=== PATIENT | female | born 1965 | race African-American/Black ===

== ENCOUNTER 2025-01-23 15:26 | Emergency (ER) | payer SELFPAY ==
[~2025-01-23] VITALS: Ht 167.6 cm; Wt 90.0 kg
[2025-01-23 16:02] VITALS: TEMP 97.7
--- NOTE | 2025-01-23 16:08 | ED.PDOC ---
CPR-HPI HPI Comments 59 year old female NILAM presents to the ED with cardiac arrest/CPR. EMS reports patient was having lunch with family at [facility] when all of a sudden patient became unresponsive and started gargling before CPR was provided by bystander. EMS relays that the patient was in asystole initially but after 3 rounds of epinephrine and 7 shocks with defibrillator, patient remained in V- Tach. EMS notes down time prior to hospital was 27 minutes. Patient noted to be a heavy smoker, no other history provided. No further history obtained at this time. 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 Family History Family History: Unknown Social History Smoker: Unknown Alcohol: Unknown Drugs: Unknown Lives In: Home Unable to Obtain due to: Medical Urgency Physical Exam General Appearance: Other (unresponsive) HEENT: Other (pupils fixed and dilated) Neck: None Respiratory: Other (good bilateral breath sounds with bagging) Cardiovascular: Other (good carotid pulses with cpr) Breast Exam: None Gastrointestinal: Other (distended) Genitalia: Deferred Pelvic: Deferred Rectal: Deferred Extremities: Other (cool, pale) Neurologic: No Motor Deficits, None Cerebellar Function: Unable to Test Reflexes: None Skin: Other (pale and cool to touch) Lymphatic: None Was a procedure done? Was a procedure done?: Yes Sedation Sedation?: No Other Procedure Procedure bedside cardiac US, minimal heart valve flickering, then CPR resumed. no cardiac tamponade, no free wall or interventricular wall rupture Differential Dx CPR Differential Diagnosis: Cardiopulmonary arrest, Cardiac Tamponade, Dysrhythmia, Electrolyte disorder, Heart Block, Myocardial Infarction, Pulmonary Embolus, Respiratory Failure, Ruptured Aortic Aneurysm, Other (aspiration) X-Ray, Labs, Meds, VS Vital Signs Date Time Temp Pulse Resp B/P (MAP) Pulse Ox O2 Delivery O2 Flow Rate FiO2 01/23/25 16:02 97.7 97.7 Time of 1ST Reevaluation: 15:59 Reevaluation 1ST: N/A (Patient .) Patient Education/Counseling: Pt Unresponsive Family Education/Counseling: Diagnosis, No Family Present Comments per pt's son, pt had finished eating, when she suddenly and quietly slumped over and became unresponsive. bystanders performed CPR after awhile and EMT reports pt without response after 3 rounds of epi for pulseless VT. once pt arrived, she continued to alternate between PEA, VF, torsades, with a couple of shoret intervals of ROSC that lasted less than 10 secs each. bagging was without difficulties. pt did not respond to many doses of epi, bicarb, mag, lidocaine, amiodarone, mostly due to the couple of transient ROSC. however, pt went into PEA again and did not respond further. resuscitation effort was terminated( see code document). before termination i attempted to intubate pt, but she had copious gi content emesis. this was suctioned and cleared and continue bagging was without difficulties just before ending the resuscitation. family came to bedside, with and son, they were updated given the history of heavy smoking, no regular medical care, morbid obesity, and the recent ingestion of a "heavy meal," an acute OR is most likely the cause of the cardiac arrest Departure 1 Departure Time of Disposition: 16:20 Impression: Primary Impression: Cardiac arrest Disposition: 20 Condition: Other () Discharged With: Relative, Spouse Critical Care Note Critical Care Time?: No Heart Score Heart Score: Heart Score Response (Comments) Value History N/A 0 EKG N/A 0 Age N/A 0 Risk Factors N/A 0 Troponin N/A 0 Total 0 Stability Stability form required: No I personally scribed for JENNIFER BENTON MD ([email or web address]) on 01/23/25 at 16:08. Electronically submitted by Mark Gardiner ([email or web address]). JENNIFER BENTON MD January 23, 2025 16:08
--- NOTE | 2025-01-23 19:05 | RESUS ---
CODE BLUE ASSESSSMENT History of Events History of Events: NILAM CPR IN PROGRESS. PT WAS AT [facility] HAVING LUNCH WITH FAMILY WHEN SHE BEGAN TO GAG AND WENT UNRESPONSIVE. EMS GAVE LIDOCAINE X 1, EPI X 1 AND SHOCLED X6. IO RIGHT TIBIA. PT IS BEING BAGGED WITH ONLY OPA IN PLACE Initial Information Date: January 23, 2025 Time: 15:25 Location of Arrest: In Field Arrest Witnessed: Yes CPR started by whom: Bystander Pre-Hospital Care: ACLS Type of arrest: Cardiac, Respiratory, Adult, Witnessed Spontaneous Respirations: No Pulse Present: No Monitoring: ECG, Capnography Crash Cart Opened and Supplies: Yes Airway Ventilation Breathing at Onset: Assisted Oxygen Delivery Method: Ambu-Bag Artificial Ventilation: Bag/Mask Circulation Circulation #1: Time: 15:26 Pulse Rate (adult): 120 Circulation Comment: PEA Circulation #2: Time: 15:28 Pulse Rate (adult): 131 Circulation Comment: PEA Circulation #3: Time: 15:32 Pulse Rate (adult): 144 Circulation Comment: SINUS TACHYCARDIA - ROSC Circulation #4: Time: 15:36 Circulation Comment: PULSES LOST - CPR RESTARTED Circulation #5: Time: 15:38 Circulation Comment: VTACH Circulation #6: Time: 15:40 Circulation Comment: VFIB Circulation #7: Time: 15:43 Circulation Comment: TORSADES DE POINTES Circulation #8: Time: 15:46 Circulation Comment: VTACH Circulation #9: Time: 15:49 Circulation Comment: VTACH Circulation #10: Time: 15:52 Circulation Comment: TORSADES DE POINTES Circulation #11: Time: 15:54 Pulse Rate (adult): 130 Circulation Comment: ROSC - SINUS TACHYCARDIA Circulation #12: Time: 15:55 Circulation Comment: CPR RESTARTED - PULSES LOST Circulation #13: Time: 15:56 Circulation Comment: VFIB Circulation #14: Time: 15:59 Circulation Comment: PEA Defibrillation Defbrillation #1: Time Defibrillator Applied: 15:25 EKG Rhythm: V-Tachycardia Compressions: Device Time Defibrillator Shocked Pt.: 15:38 Defib. Joules: 120 Pulse Present: No Defbrillation #2: Time Defibrillator Applied: 15:25 EKG Rhythm: V-Fibrillation Compressions: Device Time Defibrillator Shocked Pt.: 15:40 Defib. Joules: 200 Pulse Present: No Defbrillation #3: Time Defibrillator Applied: 15:40 EKG Rhythm: Torsades de Pointes Compressions: Device Defib. Joules: 200 Pulse Present: No Defbrillation #4: EKG Rhythm: V-Tachycardia Compressions: Device Time Defibrillator Shocked Pt.: 15:46 Defib. Joules: 200 Pulse Present: No Defbrillation #5: EKG Rhythm: V-Tachycardia Compressions: Device Time Defibrillator Shocked Pt.: 15:49 Defib. Joules: 200 Pulse Present: No Defbrillation #6: EKG Rhythm: Torsades de Pointes Time Defibrillator Shocked Pt.: 15:52 Defib. Joules: 200 Pulse Present: No Defbrillation #7: EKG Rhythm: V-Fibrillation Compressions: Device Time Defibrillator Shocked Pt.: 15:56 Defib. Joules: 200 Pulse Present: No EKG Rhythm: V-Fibrillation Procedure - IV Procedure - IV #1: IV Side: Left IV Location: Antecubital IV Catheter Type: Saline Lock IV Placed: In Hospital IV Placed by RODRIGO LEE IV Gauge: 20 IV Line Care: Saline Flush Procedure - IV #2: IV Side: Right IV Location: Antecubital IV Catheter Type: Saline Lock IV Placed: In Hospital IV Placed by RODRIGO LEE IV Gauge: 18 IV Line Care: IV Discontinued Comment PULLED OUT DURING COMPRESSIONS Procedure - IV #3: IV Side: Right IV Location: Antecubital IV Catheter Type: Saline Lock IV Placed: In Hospital IV Gauge: 18 IV Line Care: Saline Flush Procedure - Intraosseous Site of Intraosseous: Tibia calista-medial Intraosseous inserted by: EMS Number of attempts for Intraos: 1 Medications & Response Medications and Responses #1: Medication Time: 15:27 ADULT Medications Given ADULT: Epinephrine 1 mg, Sodium Bacarbinate 50 meq Route of Administration: IO Medications and Responses #2: Medication Time: 15:30 ADULT Medications Given ADULT: Epinephrine 1 mg Route of Administration: IO Medications and Responses #3: Medication Time: 15:36 ADULT Medications Given ADULT: Epinephrine 1 mg Route of Administration: IO Medications and Responses #4: Medication Time: 15:37 ADULT Medications Given ADULT: Sodium Bacarbinate 50 meq Route of Administration: IV Medications and Responses #5: Medication Time: 15:39 ADULT Medications Given ADULT: Epinephrine 1 mg Route of Administration: IV Medications and Responses #6: Medication Time: 15:42 ADULT Medications Given ADULT: Epinephrine 1 mg Route of Administration: IV Medications and Responses #7: Medication Time: 15:44 ADULT Medications Given ADULT: Magnesium Sulfate 2 gm Route of Administration: IV Medications and Responses #8: Medication Time: 15:48 ADULT Medications Given ADULT: Epinephrine 1 mg Route of Administration: IV Medications and Responses #9: Medication Time: 15:51 ADULT Medications Given ADULT: Amiodarone 300 mg Route of Administration: IV Medications and Responses #10: Medication Time: 15:57 ADULT Medications Given ADULT: Lidocaine 100 mg/amp Route of Administration: IV Nurses Notes [place] Coma Scale Eye Opening: None (1) [place] Coma Scale Verbal: None (1) [place] Coma Scale Motor: None (1) [place] Total: 3 Pupil Reaction: Non Reactive Bedside Blood Glucose: 279 EKG Rhythm: PEA Time Code Ended Time Code Ended: 15:59 Post Arrest Status: Outcome of code: Unsuccessful Patient pronounced by: DR BENTON Time patient pronounced: 15:59 Family notified: Yes Code Team Present: RODRIGO URENA, BETTINA ADAM, ERT EMT STUDENT RODRIGO LEE HENRIKE C January 23, 2025 19:05
== END 2025-01-23 15:59 ==
LOC: ER 15:26 → EDBD 15:26 → ER 15:59
DX: I46.9 Cardiac arrest, cause unspecified (principal); Z79.899 Other long term (current) drug therapy
CPT/HCPCS: 82947; 92950